=== PATIENT | male | born 1975 | race Caucasian/White ===

== ENCOUNTER 2022-04-11 20:32 | Inpatient (IN) | payer OTHER ==
[2022-04-11 23:09] LABS: BASO % 1.8 % (0-2.0); EOS % 2.4 % (0-4.5); HEMATOCRIT 33.1 % (35.4-49); HEMOGLOBIN 10.2 GM/dL (11.7-16.9); LYMPH % 18.7 % (8-40); MCH 21.7 pg (25.7-33.7); MCHC 30.6 g/dl (32.0-35.9); MEAN CELL VOLUME 70.9 fl (80-96); MONO % 9.6 % (3.8-10.2); NEUT % 67.5 % (42.8-82.8); PLATELET COUNT 254 10^3/uL (134-434); RBC 4.67 M/mm3 (4.00-5.60); RDW 19.7 % (11.9-15.9); WHITE BLOOD COUNT 9.1 K/mm3 (4.0-10.0)
[2022-04-11 23:18] LABS: INR 2.44 (0.83-1.09); PROTHROMBIN TIME (PATIENT) 28.3 SEC (9.7-13.0)
[2022-04-11 23:20] LABS: ACTIVATED PTT 35.7 SECONDS (25.2-36.5)
[2022-04-11 23:25] LABS: ALBUMIN 3.3 g/dl (3.4-5.0); BLOOD UREA NITROGEN 11.1 mg/dL (7-18); CALCIUM 8.4 mg/dL (8.5-10.1); MAGNESIUM 1.8 mg/dL (1.8-2.4)
[2022-04-11 23:28] LABS: CREATININE 0.9 mg/dL (0.55-1.3); PHOSPHOROUS 3.2 mg/dL (2.5-4.9)
[2022-04-11 23:30] LABS: BILIRUBIN,TOTAL 2.3 mg/dL (0.2-1); TOT PROT 6.9 g/dl (6.4-8.2)
[2022-04-11 23:42] LABS: ANISOCYTOSIS 2+; MACROCYTOSIS 1+; TARGET CELLS 1+
[2022-04-12] MEDS ORDERED: FUROSEMIDE 40 MG/4 ML INJECTABLE VIAL IVPUSH ONE (00:38)
[2022-04-12 01:03] LABS: URINE APPEARANCE CLEAR; URINE BILIRUBIN NEGATIVE (NEGATIVE); URINE COLOR YELLOW; URINE GLUCOSE (UA) NEGATIVE (NEGATIVE); URINE KETONE NEGATIVE (NEGATIVE); URINE LEUK ESTERASE NEGATIVE (NEGATIVE); URINE NITRITE NEGATIVE (NEGATIVE); URINE PROTEIN NEGATIVE (NEGATIVE); URINE UROBILINOGEN 0.2 mg/dL (0.2-1.0)
[2022-04-12] MEDS ORDERED: FUROSEMIDE 40 MG/4 ML INJECTABLE VIAL ONE ×2 (01:13→10:18)
[2022-04-12] MEDS ORDERED: MELATONIN 5 MG TABLETS PO PRN (05:34)
[2022-04-12 08:29] LABS: HEMATOCRIT 32.8 % (35.4-49); MCH 21.8 pg (25.7-33.7); MCHC 30.5 g/dl (32.0-35.9); MEAN CELL VOLUME 71.3 fl (80-96); MEAN PLT VOLUME 8.3 fl (7.5-11.1); PLATELET COUNT 236 10^3/uL (134-434); RBC 4.59 M/mm3 (4.00-5.60); RDW 19.9 % (11.9-15.9); RETICULOCYTES 3.13 % (0.5-1.5); WHITE BLOOD COUNT 7.3 K/mm3 (4.0-10.0)
[2022-04-12 09:02] LABS: CALCIUM 8.5 mg/dL (8.5-10.1)
[2022-04-12 09:04] LABS: BLOOD UREA NITROGEN 10.5 mg/dL (7-18)
[2022-04-12 09:07] LABS: CREATININE 0.8 mg/dL (0.55-1.3)
[2022-04-12 09:59] LABS: ALBUMIN 3.1 g/dl (3.4-5.0)
[2022-04-12] MEDS ORDERED: ENOXAPARIN NA (PORCINE) 40 MG/0.4 ML DISP.SYRIN SQ SCH (10:00)
[2022-04-12] MEDS ORDERED: FUROSEMIDE 100 MG/10 ML INJECTABLE VIAL IVPB SCH (10:00)
[2022-04-12 10:02] LABS: BILIRUBIN,DIRECT 1.1 mg/dL (0.0-0.2)
[2022-04-12 10:03] LABS: BILIRUBIN,TOTAL 2.2 mg/dL (0.2-1); TOT PROT 6.4 g/dl (6.4-8.2)
[2022-04-12] MEDS ORDERED: PHYTONADIONE 10 MG/1 ML AMP IVPB ONE ×2 (10:18→12:00)
[2022-04-12 10:21] LABS: BILIRUBIN,DIRECT 1.1 mg/dL (0.0-0.2)
[2022-04-12] MEDS ORDERED: IRON SUCROSE INJECTION 200 MG in SODIUM CHLORIDE 90 ML IVPB ONE (14:00)
[2022-04-12] MEDS ORDERED: PHYTONADIONE 10 MG/1 ML AMP ONE (14:52)
[2022-04-12 17:49] LABS: INR 2.53 (0.83-1.09); PROTHROMBIN TIME (PATIENT) 29.4 SEC (9.7-13.0)
[2022-04-12] MEDS ORDERED: INSULIN (NOVOLOG) ASPART 100 UNITS/ML 10ML VIAL ONE (21:49)
[2022-04-12] MEDS: SACUBITRIL/VALSARTAN 24 MG-26 MG TABLET PO SCH (22:00)
[2022-04-12] MEDS: CARVEDILOL 3.125 MG TABLET (FP) PO SCH (22:00)
[2022-04-13] MEDS ORDERED: PANTOPRAZOLE 40 MG TABLET PO ONE (09:09)
[2022-04-13] MEDS: PANTOPRAZOLE 40 MG TABLET PO SCH (09:13)
[2022-04-13] MEDS: CARVEDILOL 3.125 MG TABLET (FP) PO SCH ×2 (09:18→22:43)
[2022-04-13] MEDS: SACUBITRIL/VALSARTAN 24 MG-26 MG TABLET PO SCH ×2 (09:18→22:43)
[2022-04-13] MEDS: FUROSEMIDE 40 MG/4 ML INJECTABLE VIAL IVPB SCH (09:18)
[2022-04-13] MEDS: SPIRONOLACTONE 25 MG TABLET PO SCH (09:19)
[2022-04-13 12:40] LABS: ALBUMIN 2.8 g/dl (3.4-5.0); BLOOD UREA NITROGEN 11.4 mg/dL (7-18); CALCIUM 8.1 mg/dL (8.5-10.1)
[2022-04-13 12:42] LABS: BILIRUBIN,DIRECT 0.8 mg/dL (0.0-0.2); CREATININE 0.8 mg/dL (0.55-1.3)
[2022-04-13 12:44] LABS: BILIRUBIN,TOTAL 1.9 mg/dL (0.2-1); TOT PROT 6.2 g/dl (6.4-8.2)
[2022-04-13] MEDS ORDERED: PHYTONADIONE 10 MG/1 ML AMP ONE (14:38)
[2022-04-13] MEDS ORDERED: IRON SUCROSE INJECTION 200 MG in SODIUM CHLORIDE 90 ML IVPB ONE (15:00)
[2022-04-13] MEDS ORDERED: PHYTONADIONE 10 MG/1 ML AMP IVPB ONE (15:00)
[2022-04-13 15:13] LABS: BASO % 1.3 % (0-2.0); EOS % 4.2 % (0-4.5); HEMATOCRIT 31.3 % (35.4-49); HEMOGLOBIN 9.9 GM/dL (11.7-16.9); LYMPH % 16.5 % (8-40); MCH 22.6 pg (25.7-33.7); MCHC 31.7 g/dl (32.0-35.9); MEAN CELL VOLUME 71.1 fl (80-96); MEAN PLT VOLUME 7.5 fl (7.5-11.1); MONO % 9.7 % (3.8-10.2); NEUT % 68.3 % (42.8-82.8); PLATELET COUNT 204 10^3/uL (134-434); RDW 20.1 % (11.9-15.9)
[2022-04-13 15:22] LABS: INR 1.93 (0.83-1.09); PROTHROMBIN TIME (PATIENT) 22.4 SEC (9.7-13.0)
[2022-04-14 00:42] VITALS: BMI 30.7
[2022-04-14 03:35] VITALS: RESP 18
[2022-04-14 07:22] LABS: BASO % 1.1 % (0-2.0); HEMATOCRIT 33.4 % (35.4-49); HEMOGLOBIN 10.2 GM/dL (11.7-16.9); LYMPH % 16.6 % (8-40); MCH 21.9 pg (25.7-33.7); MCHC 30.7 g/dl (32.0-35.9); MEAN CELL VOLUME 71.4 fl (80-96); MEAN PLT VOLUME 8.3 fl (7.5-11.1); MONO % 8.3 % (3.8-10.2); PLATELET COUNT 212 10^3/uL (134-434); RBC 4.68 M/mm3 (4.00-5.60); RDW 19.9 % (11.9-15.9); WHITE BLOOD COUNT 8.8 K/mm3 (4.0-10.0)
[2022-04-14 07:29] LABS: INR 1.72 (0.83-1.09); PROTHROMBIN TIME (PATIENT) 19.9 SEC (9.7-13.0)
[2022-04-14] MEDS: PANTOPRAZOLE 40 MG TABLET PO SCH (11:15)
[2022-04-14] MEDS: FUROSEMIDE 40 MG/4 ML INJECTABLE VIAL IVPB SCH (11:29)
[2022-04-14] MEDS: CARVEDILOL 3.125 MG TABLET (FP) PO SCH (11:32)
[2022-04-14] MEDS: SACUBITRIL/VALSARTAN 24 MG-26 MG TABLET PO SCH (11:32)
[2022-04-14] MEDS: SPIRONOLACTONE 25 MG TABLET PO SCH (11:33)
[2022-04-14 14:49] VITALS: BP 91/60; PULSE 89; TEMP 99.2
[2022-04-14] MEDS ORDERED: IRON SUCROSE INJECTION 200 MG in SODIUM CHLORIDE 90 ML IVPB ONE (15:30)
== END 2022-04-14 18:37 | disposition short-term general hospital (02) | DRG 279 ==
LOC: JER 20:32 → JERBED 22:38 → J4W 04-13 23:06
PROVIDERS: ADMIT Hospitalist; ATTEND Internal Medicine
DX: K72.00 Acute and subacute hepatic failure without coma (principal); I50.21 Acute systolic (congestive) heart failure; E87.70 Fluid overload, unspecified; I35.0 Nonrheumatic aortic (valve) stenosis; K76.0 Fatty (change of) liver, not elsewhere classified; D64.9 Anemia, unspecified; R60.0 Localized edema; R68.89 Other general symptoms and signs; R79.89 Other specified abnormal findings of blood chemistry; K72.90 Hepatic failure, unspecified without coma; D50.9 Iron deficiency anemia, unspecified; K21.9 Gastro-esophageal reflux disease without esophagitis; I50.9 Heart failure, unspecified; R01.1 Cardiac murmur, unspecified; I11.0 Hypertensive heart disease with heart failure; I27.20 Pulmonary hypertension, unspecified; K70.11 Alcoholic hepatitis with ascites; D68.9 Coagulation defect, unspecified
CPT/HCPCS: 0241U-QW; 36415; 71046-TC-FY; 74177-TC; 74182-TC; 76705-TC; 76942-TC; 80048; 80053; 80061; 80076; 81003; 82140; 82248; 82607; 82728; 82746; 83010; 83036; 83516; 83540; 83550; 83615; 83690; 83735; 83880; 84100; 84443; 84484; 85025; 85027; 85045; 85384; 85610; 85730; 86038; 86704; 86708; 86709; 86803; 86850; 86900; 86901; 87340; 87517; 93005; 93010; 93306-TC; 93880-TC; 99285-25; A9579; J1756; Q9967

== ENCOUNTER 2022-07-06 18:00 | Emergency (ER) | payer OTHER ==
[2022-07-06 18:13] VITALS: BP 114/76; PULSE 94; RESP 18; TEMP 98.1; BMI 29.1
[2022-07-06 20:02] LABS: BASO % 0.9 % (0-2.0); EOS % 3.7 % (0-4.5); HEMATOCRIT 32.5 % (35.4-49); LYMPH % 17.8 % (8-40); MCHC 33.7 g/dl (32.0-35.9); MEAN CELL VOLUME 83.2 fl (80-96); MEAN PLT VOLUME 6.9 fl (7.5-11.1); MONO % 15.4 % (3.8-10.2); NEUT % 62.2 % (42.8-82.8); PLATELET COUNT 221 10^3/uL (134-434); RBC 3.91 M/mm3 (4.00-5.60); WHITE BLOOD COUNT 10.8 K/mm3 (4.0-10.0)
[2022-07-06 20:20] LABS: PROTHROMBIN TIME (PATIENT) 61.2 SEC (9.7-13.0)
[2022-07-06 20:26] LABS: CALCIUM 8.7 mg/dL (8.5-10.1)
[2022-07-06 20:28] LABS: ALBUMIN 3.5 g/dl (3.4-5.0); BLOOD UREA NITROGEN 12.7 mg/dL (7-18)
[2022-07-06 20:30] LABS: CREATININE 0.9 mg/dL (0.55-1.3)
[2022-07-06 20:32] LABS: BILIRUBIN,TOTAL 0.3 mg/dL (0.2-1); TOT PROT 7.1 g/dl (6.4-8.2)
[2022-07-06 20:52] LABS: INR 5.23 (0.83-1.09)
[2022-07-06 20:53] LABS: ANISOCYTOSIS 3+; MACROCYTOSIS 0; OVALOCYTE 1+; TARGET CELLS 2+; TEAR DROP CELLS 1+
[2022-07-06] MEDS ORDERED: DOXYCYCLINE HYCLATE 100 MG CAPSULE PO ONE ×2 (21:43→21:44)
== END 2022-07-06 21:49 | disposition home or self-care (01) ==
LOC: JERFT 18:00
DX: L03.116 Cellulitis of left lower limb (principal); R79.1 Abnormal coagulation profile
CPT/HCPCS: 36415; 73630-TC-LT; 80053; 85025; 85610; 99284-25

== ENCOUNTER 2025-02-05 21:10 | Emergency (ER) | payer OTHER ==
[2025-02-05 21:15] VITALS: BP 128/82; PULSE 93; RESP 20; TEMP 97.9; BMI 38.1
[2025-02-05] MEDS ORDERED: DIPHTH,PERTUSS(ACELL),TET 0.5 ML DISP.SYRIN IM ONE (22:00)
[2025-02-05] MEDS: DIPHTH,PERTUSS(ACELL),TET 0.5 ML DISP.SYRIN IM ONE (22:05)
[2025-02-05 23:23] LABS: INR 2.52 (0.83-1.09); PROTHROMBIN TIME (PATIENT) 27.5 SEC (9.7-13.0)
[2025-02-05 23:27] LABS: ABSOLUTE IMMATURE GRANULOCYTES 0.04 x10^3/uL (0.0-0.031); BASOPHILS # 0.13 x10^3/uL (0.01-0.08); EOSINOPHIL % 3.5 % (0.8-7.0); EOSINOPHILS # 0.45 x10^3/uL (0.04-0.54); HEMATOCRIT 40.9 % (40.1-51.0); HEMOGLOBIN 13.9 g/dL (13.7-17.5); MEAN CELL VOLUME 89.9 fl (79.0-92.2); MEAN PLT VOLUME 9.8 fl (9.4-12.4); MONOCYTE # 1.06 x10^3/uL (0.30-0.82); MONOCYTE % 8.3 % (5.3-12.2); PLATELET COUNT 246 x10^3/uL (163-337); RDW 12.7 % (12.1-15.9)
[2025-02-05 23:47] LABS: POTASSIUM 3.7 mmol/L (3.5-5.1)
[2025-02-05 23:49] LABS: CALCIUM 9.1 mg/dL (8.5-10.1)
[2025-02-05 23:50] LABS: BLOOD UREA NITROGEN 16.8 mg/dL (7-18)
[2025-02-05 23:53] LABS: CREATININE 0.8 mg/dL (0.55-1.3)
[2025-02-05 23:54] LABS: BILIRUBIN,TOTAL 0.3 mg/dL (0.2-1); TOT PROT 7.6 g/dl (6.4-8.2)
== END 2025-02-06 00:15 | disposition home or self-care (01) ==
LOC: JERFT 21:10
PROC: 3E0234Z Introduction of Serum, Toxoid and Vaccine into Muscle, Percutaneous Approach (ICD-10-PCS; principal; 2025-02-05)
DX: S61.217A Laceration without foreign body of left little finger without damage to nail, initial encounter (principal); Z23 Encounter for immunization; W26.0XXA Contact with knife, initial encounter; Y99.0 Civilian activity done for income or pay
CPT/HCPCS: 36415; 80053; 85025; 85610; 85730; 86850; 86900; 86901; 90471; 90715; 99284-25